=== PATIENT | female | born 1990 | race American Indian/Alaskan Native ===

== ENCOUNTER 2017-05-16 19:20 | Emergency (ER) | payer SELFPAY ==
[2017-05-16 21:38] VITALS: BP 140/70
[2017-05-16 22:00] LABS: Basophils % (Auto) 0.6 % (0.0-1.8); Eosinophils # (Auto) 0.1 K/mm3 (0.0-0.4); Eosinophils % (Auto) 0.7 % (0.0-4.3); Hematocrit 38.4 % (30.3-42.9); Lymphocytes # (Auto) 2.5 K/mm3 (1.2-5.4); Mean Corpuscular HGB Conc 34 % (30-34); Mean Corpuscular Hemoglobin 31 pg (28-32); Mean Corpuscular Volume 90 fl (79-97); Monocytes # (Auto) 0.5 K/mm3 (0.0-0.8); Monocytes % (Auto) 6.6 % (0.0-7.3); Platelet Count 233 K/mm3 (140-440); Red Blood Count 4.28 M/mm3 (3.65-5.03)
[2017-05-16 22:18] LABS: BUN/Creatinine Ratio 13; Blood Urea Nitrogen 9 mg/dL (7-17); Calcium 9.6 mg/dL (8.4-10.2); Hemolysis Index 11
--- NOTE | 2017-05-16 23:23 | XRay Report ---
FINAL REPORT PROCEDURE: Three view cervical spine series TECHNIQUE: Cervical spine radiographs, AP, lateral, and open-mouth odontoid views. CPT 29819 HISTORY: neck pain COMPARISON: No prior studies are available for comparison. FINDINGS: Prevertebral soft tissues: Normal . Alignment: Normal . Vertebral body heights/Disk spaces: Normal . Fracture(s): None . Facets: Normal . Bone mineralization: Normal . IMPRESSION: Negative examination
[2017-05-16 23:55] LABS: Bacteria,Urine 1+ /HPF (Negative); Bilirubin,Urine NEG (Negative); Blood,Urine SM (Negative); Color,Urine Yellow (Yellow); Hyaline Casts,Urine 1 /LPF; Mucus,Urine 1+ /HPF; Nitrite,Urine POS (Negative); Protein,Urine <15 mg/dL mg/dL (Negative)
--- NOTE | 2017-05-17 01:43 | XRay Report ---
FINAL REPORT EXAM: XR RIBS UNILAT 2V RT HISTORY: Right rib pain TECHNIQUE: 3 views of the right ribs PRIORS: None. FINDINGS: The ribs are intact without evidence of fracture. The cardiomediastinal silhouette appears normal. The visualized lung toussaint are clear. The soft tissues are unremarkable IMPRESSION: No evidence of acute rib fracture
== END 2017-05-17 02:15 | disposition left against medical advice (07) ==
LOC: ED 19:20
DX: Z53.21 Procedure and treatment not carried out due to patient leaving prior to being seen by health care provider (principal)
CPT/HCPCS: 36415; 72040; 80048; 81001; 84703; 85025